=== PATIENT | male | born 1975 | race Caucasian/White ===

== ENCOUNTER 2017-04-07 23:02 | Inpatient (IN) | payer SELFPAY ==
[~2017-04-07] VITALS: Ht 175.3 cm; Wt 89.4 kg
[~2017-04-07 23:02] MED LIST: ALPR0.25 PO; VENL37.52 PO
[2017-04-07] MEDS ORDERED: METF1000 PO (23:14)
[2017-04-07] MEDS ORDERED: LACTATED RINGERS 1,000 ML IV ONE (23:21)
[2017-04-07] MEDS ORDERED: KETOROLAC 30 MG/ML VIAL IVP ONE (23:30)
[2017-04-07 23:36] LABS: BASOPHILS % (AUTO) 0 % (0-10); BILIRUBIN,URINE NEGATIVE (NEGATIVE); COLOR,URINE YELLOW; EOSINOPHILS # (AUTO) 0.2 10^3/uL (0.0-0.3); EOSINOPHILS % (AUTO) 3 % (0-10); GLUCOSE, URINE (UA) 3+ (NEGATIVE); HEMATOCRIT 40 % (40-54); HEMOGLOBIN 14.9 G/DL (13.3-17.7); KETONES,URINE 4+ (NEGATIVE); LEUKOCYTE ESTERASE ,URINE NEGATIVE (NEGATIVE); LYMPHOCYTES # (AUTO) 1.8 X 10^3 (1.0-4.0); LYMPHOCYTES % (AUTO) 31 % (12-44); MEAN CORPUSCULAR HEMOGLOBIN 32 PG (25-34); MEAN CORPUSCULAR HGB CONC 37 G/DL (32-36); MEAN CORPUSCULAR VOLUME 85 FL (80-99); MEAN PLATELET VOLUME 9.7 FL (7.4-10.4); MONOCYTES # (AUTO) 0.5 X 10^3 (0.0-1.0); MONOCYTES % (AUTO) 9 % (0-12); NEUTROPHILS # (AUTO) 3.2 X 10^3 (1.8-7.8); NEUTROPHILS % (AUTO) 56 % (42-75); NITRITE,URINE NEGATIVE (NEGATIVE); PH,URINE 5 (5-9); PLATELET COUNT 241 10^3/uL (130-400); PROTEIN,URINE 2+ (NEGATIVE); RED BLOOD COUNT 4.71 10^6/uL (4.35-5.85); RED CELL DISTRIBUTION WIDTH 11.7 % (10.0-14.5); UROBILINOGEN,URINE NORMAL (NORMAL); WHITE BLOOD COUNT 5.7 10^3/uL (4.3-11.0)
[2017-04-07 23:43] LABS: BACTERIA,URINE TRACE /HPF; CALCIUM OXALATE CRYSTALS,UR MODERATE /LPF; CLARITY,URINE SLIGHTLY CLOUDY; GRANULAR CASTS,URINE 0-2 /LPF
[2017-04-08] VITALS (16 sets, daily range): BP systolic 102–146; BP diastolic 64–98
[2017-04-08] LABS: ALANINE AMINOTRANSFERASE 165 U/L (0-55); ALBUMIN 3.6 GM/DL (3.2-4.5); ALKALINE PHOSPHATASE 68 U/L (40-136); BILIRUBIN,TOTAL 0.5 MG/DL (0.1-1.0); BUN/CREATININE RATIO 16; CALCIUM 8.9 MG/DL (8.5-10.1); CARBON DIOXIDE 20 MMOL/L (21-32); CHLORIDE 100 MMOL/L (98-107); CREATININE SERUM 0.87 MG/DL (0.60-1.30); GFR ESTIMATED > 60; GLUCOSE 255 MG/DL (70-105); POTASSIUM 4.1 MMOL/L (3.6-5.0); SODIUM 136 MMOL/L (135-145); TOTAL PROTEIN 6.7 GM/DL (6.4-8.2)
--- NOTE | 2017-04-08 00:03 | ED Headache ---
General Chief Complaint: Glucose Problems Stated Complaint: ELEVATED PULSE,HEADACHE, AFTER NEW DIABETE MEDS Nursing Triage Note: HEADACHE, TACHYCARDIA STARTED METFORMIN SUNDAY Nursing Sepsis Screen: No Definite Risk Source: patient Exam Limitations: no limitations History of Present Illness Date Seen by Provider: Apr 07, 2017 Time Seen by Provider: 23:30 Initial Comments Patient present to ER by private conveyance with a chief complaint that he has been having a headache for the past day or so is progressively getting worse as well as general malaise. He has a little runny nose but no cough, shortness of breath, fevers, chills, nausea, vomiting, diarrhea, constipation or abdominal pain. He says 9 weeks ago he was a heavy drinker and he decided to quit drinking a get healthy because he discovered he was diabetic. He did a follow- up appointment earlier this week 5 or 6 days ago and was started on metformin 1000 mg twice a day. Since he stopped drinking he also started a ketogenic diet trying to reverse his diabetes and says he believes he is in ketosis. He is not on any other medications and has only been on the metformin for about for 5 days now. He took 800 mg ibuprofen about 6-8 hours ago with very little relief of his headache. He does not have a history of headaches or migraines. Patient reports at his last doctor's appointment was last time he had his sugar checked and it was 393 about a week ago. Allergies and Home Medications Allergies Coded Allergies: Penicillins (Unverified Adverse Reaction, Unknown, 11/14/14) codeine (Unverified Adverse Reaction, Unknown, 11/14/14) Home Medications Alprazolam 0.25 Mg Tablet, 0.25 MG PO BID PRN for ANXIETY, (Reported) Metformin HCl 1,000 Mg Tablet, Unknown Dose PO, (Reported) Venlafaxine HCl 37.5 Mg Cap.er.24h, 37.5 MG PO every other day, (Reported) Constitutional: No chills, No fever, malaise Eyes: Denies Blindness, Denies Blurred Vision, Denies Drainage Ears, Nose, Mouth, Throat: denies ear pain, denies ear discharge Respiratory: No cough, No dyspnea on exertion, No short of breath, No wheezing Cardiovascular: No chest pain, No palpitations Gastrointestinal: No abdominal pain, No constipation, No diarrhea, No nausea, No vomiting Genitourinary: No discharge, No dysuria Musculoskeletal: No back pain, No joint pain Skin: No pruritus, No rash Psychiatric/Neurological: Headache, Denies Numbness, Denies Paresthesia, Denies Seizure Past Yalgody-Kaqomh-Frgwzk Hx Patient Social History Alcohol Use: Denies Use Recreational Drug Use: No Smoking Status: Never a Smoker 2nd Hand Smoke Exposure: No Recent Foreign Travel: No Contact w/Someone Who Travel: No Recent Infectious Disease Expo: No Recent Hopitalizations: No Immunizations Up To Date Tetanus Booster (TDap): Unknown Seasonal Allergies Seasonal Allergies: No Surgeries History of Surgeries: Yes Surgeries: Abdominal, Orthopedic Respiratory History of Respiratory Disorde: No Cardiovascular History of Cardiac Disorders: No Neurological History of Neurological Disord: No Genitourinary History of Genitourinary Disor: No Gastrointestinal History of Gastrointestinal Di: Yes Gastrointestinal Disorders: Abdominal Hernia Musculoskeletal History of Musculoskeletal Dis: Yes Musculoskeletal Disorders: Degenerate Disk Disease Endocrine History of Endocrine Disorders: Yes Endocrine Disorders: Diabetes, Non-Insulin dep HEENT History of HEENT Disorders: No Cancer History of Cancer: No Psychosocial History of Psychiatric Problem: Yes Behavioral Health Disorders: Anxiety, Depression Integumentary History of Skin or Integumenta: No Physical Exam Vital Signs Vital Sign - Last 12Hours 04/07/17 23:05 Temp 97.9 Pulse 98 Resp 18 B/P (MAP) 129/90 (103) Pulse Ox 98 O2 Delivery Room Air Capillary Refill : Less Than 3 Seconds General Appearance: WD/WN, no apparent distress HEENT: PERRL/EOMI, normal ENT inspection, TMs normal, pharynx normal Neck: non-tender, supple, normal inspection Cardiovascular: normal peripheral pulses, regular rate, rhythm, no edema Respiratory: chest non-tender, lungs clear, normal breath sounds Gastrointestinal: normal bowel sounds, non tender, soft Extremities: normal inspection, normal capillary refill Psychiatric: alert, oriented x 3 Crainal Nerves: normal hearing, normal speech, PERRL Skin: normal color, warm/dry Progress/Results/Core Measures Results/Orders Lab Results Laboratory Tests Test 04/07/17 23:30 Range/Units White Blood Count 5.7 4.3-11.0 10^3/uL Red Blood Count 4.71 4.35-5.85 10^6/uL Hemoglobin 14.9 13.3-17.7 G/DL Hematocrit 40 40-54 % Mean Corpuscular Volume 85 80-99 FL Mean Corpuscular Hemoglobin 32 25-34 PG Mean Corpuscular Hemoglobin Concent 37 H 32-36 G/DL Red Cell Distribution Width 11.7 10.0-14.5 % Platelet Count 241 130-400 10^3/uL Mean Platelet Volume 9.7 7.4-10.4 FL Neutrophils (%) (Auto) 56 42-75 % Lymphocytes (%) (Auto) 31 12-44 % Monocytes (%) (Auto) 9 0-12 % Eosinophils (%) (Auto) 3 0-10 % Basophils (%) (Auto) 0 0-10 % Neutrophils # (Auto) 3.2 1.8-7.8 X 10^3 Lymphocytes # (Auto) 1.8 1.0-4.0 X 10^3 Monocytes # (Auto) 0.5 0.0-1.0 X 10^3 Eosinophils # (Auto) 0.2 0.0-0.3 10^3/uL Basophils # (Auto) 0.0 0.0-0.1 10^3/uL Urine Color YELLOW Urine Clarity SLIGHTLY CLOUDY Urine pH 5 5-9 Urine Specific [place] 1.025 H 1.016-1.022 Urine Protein 2+ H NEGATIVE Urine Glucose (UA) 3+ H NEGATIVE Urine Ketones 4+ H NEGATIVE Urine Nitrite NEGATIVE NEGATIVE Urine Bilirubin NEGATIVE NEGATIVE Urine Urobilinogen NORMAL NORMAL MG/DL Urine Leukocyte Esterase NEGATIVE NEGATIVE Urine RBC (Auto) NEGATIVE NEGATIVE Urine RBC NONE /HPF Urine WBC NONE /HPF Urine Squamous Epithelial Cells NONE /HPF Urine Crystals PRESENT H /LPF Urine Calcium Oxalate Crystals MODERATE H /LPF Urine Bacteria TRACE /HPF Urine Casts PRESENT /LPF Urine Granular Casts 0-2 H /LPF Urine Mucus SMALL H /LPF Urine Culture Indicated NO Sodium Level 136 135-145 MMOL/L Potassium Level 4.1 3.6-5.0 MMOL/L Chloride Level 100 98-107 MMOL/L Carbon Dioxide Level 20 L 21-32 MMOL/L Anion Gap 16 H 5-14 MMOL/L Blood Urea Nitrogen 14 7-18 MG/DL Creatinine 0.87 0.60-1.30 MG/DL Estimat Glomerular Filtration Rate > 60 BUN/Creatinine Ratio 16 Glucose Level 255 H 70-105 MG/DL Calcium Level 8.9 8.5-10.1 MG/DL Total Bilirubin 0.5 0.1-1.0 MG/DL Aspartate Amino Transf (AST/SGOT) 96 H 5-34 U/L Alanine Aminotransferase (ALT/SGPT) 165 H 0-55 U/L Alkaline Phosphatase 68 40-136 U/L Total Protein 6.7 6.4-8.2 GM/DL Albumin 3.6 3.2-4.5 GM/DL My Orders Orders - JANETH MEZA Cbc With Automated Diff (04/07/17 23:21) Comprehensive Metabolic Panel (04/07/17 23:21) Ua Culture If Indicated (04/07/17 23:21) Saline Lock/Iv-Start (04/07/17 23:21) Lactated Ringers (Lr 1000 Ml Iv Solution (04/07/17 23:21) Ketorolac Injection (Toradol Injection) (04/07/17 23:30) Ns Iv 1000 Ml (Sodium Chloride 0.9%) (04/08/17 00:33) Medications Given in ED Current Medications Medications Dose Ordered Sig/Rylan Route Start Time Stop Time Status Last Admin Dose Admin Ketorolac Tromethamine 15 mg ONCE ONCE IVP 04/07/17 23:30 04/07/17 23:31 DC 04/07/17 23:29 15 MG Lactated Ringer's 1,000 ml @ 0 mls/hr Q0M ONCE IV 04/07/17 23:21 04/07/17 23:22 DC 04/07/17 23:29 0 MLS/HR Sodium Chloride 1,000 ml @ 0 mls/hr Q0M ONCE IV 04/08/17 00:33 04/08/17 00:34 DC 04/08/17 00:40 0 MLS/HR Vital Signs/I&O Vital Sign - Last 12Hours 04/07/17 04/07/17 04/08/17 23:05 23:29 00:21 Temp 97.9 97.9 Pulse 98 77 Resp 18 16 B/P (MAP) 129/90 (103) 136/81 (99) Pulse Ox 98 97 O2 Delivery Room Air Room Air Blood Pressure Mean: 103 Progress Note : Time: 00:02 Progress Note Mean on metformin and a ketogenic diet has probably got him a little dehydrated. We'll get urine, blood and check his kidney function as well as give him a liter of LR. Departure Communication (Admissions) Time/Spoke to Admitting Phy: 01:[address] Lui she is okay with 10 of regular insulin by IV and DKA protocol in the ICU and she'll see the patient in the morning. Impression Impression: Primary Impression: Diabetic ketoacidosis Qualified Codes: E11.10 - Type 2 diabetes mellitus with ketoacidosis without coma Disposition: ADMITTED INPATIENT Condition: Improved Admissions Decision to Admit Reason: Admit from ER (General) Decision to Admit/Date: Apr 08, 2017 Time/Decision to Admit Time: 01:06 Departure-Patient Inst. Referrals: OCHOA CORNEJO (PCP/Family) Primary Care Physician JANETH MEZA Apr 08, 2017 00:02
[2017-04-08] MEDS ORDERED: NS IV 1000 ML 1,000 ML IV ONE (00:33)
[2017-04-08] MEDS ORDERED: inSUlin (REGULAR) HUMAN 1 UNIT/0.01 ML (CHARGE PER UNIT) IV ONE (01:15)
--- OUTSIDE RECORDS SUMMARY | 2017-04-08 01:23 | XMS REPORT | Continuity of Care Document ---
Author Author [facility] Organization [facility] Address Unknown Phone Unavailable Allergies Active Description Code Type Severity Reaction Onset Reported/Identified Relationship to Patient Clinical Status Yes codeine [id number] Drug Allergy Unknown N/A 11/14/2014 Yes Penicillins [id number] Drug Allergy Unknown N/A 11/14/2014 Medications There is no data. Problems Date Dx Coded Attending Type Code Diagnosis Diagnosed By 11/15/2014 ARIELA CHAMBERLAIN MD Ot 785.0 TACHYCARDIA NOS 11/15/2014 ARIELA CHAMBERLAIN MD Ot 785.1 PALPITATIONS 11/15/2014 ARIELA CHAMBERLAIN MD Ot 790.5 ABN SERUM ENZY LEVEL NEC 09/08/2015 ARIELA CHAMBERLAIN MD Ot R07.89 OTHER CHEST PAIN 09/08/2015 ARIELA CHAMBERLAIN MD Ot R73.9 HYPERGLYCEMIA, UNSPECIFIED 09/08/2015 ARIELA CHAMBERLAIN MD Ot R74.8 ABNORMAL LEVELS OF OTHER SERUM ENZYMES Procedures There is no data. Results Test Result Range Complete blood count (CBC) with automated white blood cell (WBC) differential - 04/07/17 23:30 Blood leukocytes automated count (number/volume) 5.7 10*3/uL 4.3-11.0 Blood erythrocytes automated count (number/volume) 4.71 10*6/uL 4.35-5.85 Venous blood hemoglobin measurement (mass/volume) 14.9 g/dL 13.3-17.7 Blood hematocrit (volume fraction) 40 % 40-54 Automated erythrocyte mean corpuscular volume 85 [foz_us] 80-99 Automated erythrocyte mean corpuscular hemoglobin (mass per erythrocyte) 32 pg 25-34 Automated erythrocyte mean corpuscular hemoglobin concentration measurement ( mass/volume) 37 g/dL 32-36 Automated erythrocyte distribution width ratio 11.7 % 10.0-14.5 Automated blood platelet count (count/volume) 241 10*3/uL 130-400 Automated blood platelet mean volume measurement 9.7 [foz_us] 7.4-10.4 Automated blood neutrophils/100 leukocytes 56 % 42-75 Automated blood lymphocytes/100 leukocytes 31 % 12-44 Blood monocytes/100 leukocytes 9 % 0-12 Automated blood eosinophils/100 leukocytes 3 % 0-10 Automated blood basophils/100 leukocytes 0 % 0-10 Blood neutrophils automated count (number/volume) 3.2 10*3 1.8-7.8 Blood lymphocytes automated count (number/volume) 1.8 10*3 1.0-4.0 Blood monocytes automated count (number/volume) 0.5 10*3 0.0-1.0 Automated eosinophil count 0.2 10*3/uL 0.0-0.3 Automated blood basophil count (count/volume) 0.0 10*3/uL 0.0-0.1 Complete urinalysis with reflex to culture - 04/07/17 23:30 Urine color determination YELLOW NRG Urine clarity determination SLIGHTLY CLOUDY NRG Urine pH measurement by test strip 5 5-9 Specific gravity of urine by test strip 1.025 1.016- 1.022 Urine protein assay by test strip, semi-quantitative 2+ NEGATIVE Urine glucose detection by automated test strip 3+ NEGATIVE Erythrocytes detection in urine sediment by light microscopy NEGATIVE NEGATIVE Urine ketones detection by automated test strip 4+ NEGATIVE Urine nitrite detection by test strip NEGATIVE NEGATIVE Urine total bilirubin detection by test strip NEGATIVE NEGATIVE Urine urobilinogen measurement by automated test strip (mass/volume) NORMAL NORMAL Urine leukocyte esterase detection by dipstick NEGATIVE NEGATIVE Automated urine sediment erythrocyte count by microscopy (number/high power field) NONE NRG Automated urine sediment leukocyte count by microscopy (number/high power field ) NONE NRG Bacteria detection in urine sediment by light microscopy TRACE NRG Squamous epithelial cells detection in urine sediment by light microscopy NONE NRG Crystals detection in urine sediment by light microscopy PRESENT NRG Casts detection in urine sediment by light microscopy PRESENT NRG Mucus detection in urine sediment by light microscopy SMALL NRG Complete urinalysis with reflex to culture NO NRG Calcium oxalate crystals detection in urine sediment by light microscopy MODERATE NRG Granular casts detection in urine sediment by light microscopy 0-2 NRG Comprehensive metabolic panel - 04/07/17 23:30 Serum or plasma sodium measurement (moles/volume) 136 mmol/L 135-145 Serum or plasma potassium measurement (moles/volume) 4.1 mmol/L 3.6-5.0 Serum or plasma chloride measurement (moles/volume) 100 mmol/L 98-107 Carbon dioxide 20 mmol/L 21-32 Serum or plasma anion gap determination (moles/volume) 16 mmol/L 5-14 Serum or plasma urea nitrogen measurement (mass/volume) 14 mg/dL 7-18 Serum or plasma creatinine measurement (mass/volume) 0.87 mg/dL 0.60-1.30 Serum or plasma urea nitrogen/creatinine mass ratio 16 NRG Serum or plasma creatinine measurement with calculation of estimated glomerular filtration rate > NRG Serum or plasma glucose measurement (mass/volume) 255 mg/dL 70-105 Serum or plasma calcium measurement (mass/volume) 8.9 mg/dL 8.5-10.1 Serum or plasma total bilirubin measurement (mass/volume) 0.5 mg/dL 0.1-1.0 Serum or plasma alkaline phosphatase measurement (enzymatic activity/volume) 68 U/L 40-136 Serum or plasma aspartate aminotransferase measurement (enzymatic activity/ volume) 96 U/L 5-34 Serum or plasma alanine aminotransferase measurement (enzymatic activity/volume ) 165 U/L 0-55 Serum or plasma protein measurement (mass/volume) 6.7 g/dL 6.4-8.2 Serum or plasma albumin measurement (mass/volume) 3.6 g/dL 3.2-4.5 Encounters ACCT No. Visit Date/Time Discharge Status Pt. Type Provider Facility Loc./Unit Complaint [id number] 09/07/2015 10:19:00 09/07/2015 12:37:00 DIS Outpatient ARIELA CHAMBERLAIN MD [facility] ER [id number] 11/14/2014 20:17:00 11/15/2014 00:14:00 DIS Emergency ARIELA CHAMBERLAIN MD [facility] ER [id number] 04/07/2017 23:38:00 Document Registration
--- OUTSIDE RECORDS SUMMARY | 2017-04-08 01:23 | XMS REPORT ---
Author Author [facility] Address Unknown Care Team Providers Care Garment Manufacturer Name Role Phone [facility] Unavailable PROBLEMS Unknown Problems ALLERGIES Substance Reaction Event Type Date Status Penicillin Unknown Non Drug Allergy Mar, Active codiene Unknown Non Drug Allergy Mar, Active SOCIAL HISTORY No smoking Hx information available PLAN OF CARE Activity Details Follow Up prn Reason:hygeine VITAL SIGNS Blood pressure systolic 136 mmHg 2016-04-07 Blood pressure diastolic 99 mmHg 2016-04-07 MEDICATIONS Medication Instructions Dosage Frequency Start Date End Date Duration Status Effexor Active Clindamycin HCl 150 MG Orally every 6 hrs 2 capsules 6h Mar, Mar, 7 days Active RESULTS No Results PROCEDURES Procedure Date Ordered Related Diagnosis Body Site LTD ORAL EVALUATION - PROBLEM FOCUS Apr 07, 2016 INTRAORL-PERIAPICAL 1 FILM [id number] Apr 07, 2016 BITEWING - SINGLE FILM Apr 07, 2016 IMMUNIZATIONS No Known Immunizations
[2017-04-08] MEDS ORDERED: ACETAMINOPHEN 500 MG TAB (TYLENOL) ONE (02:14)
[2017-04-08 02:33] LABS: BASOPHILS % (AUTO) 0 % (0-10); EOSINOPHILS # (AUTO) 0.2 10^3/uL (0.0-0.3); EOSINOPHILS % (AUTO) 3 % (0-10); HEMATOCRIT 38 % (40-54); LYMPHOCYTES # (AUTO) 1.8 X 10^3 (1.0-4.0); LYMPHOCYTES % (AUTO) 32 % (12-44); MEAN CORPUSCULAR HEMOGLOBIN 32 PG (25-34); MEAN CORPUSCULAR HGB CONC 37 G/DL (32-36); MEAN CORPUSCULAR VOLUME 86 FL (80-99); MEAN PLATELET VOLUME 9.8 FL (7.4-10.4); MONOCYTES # (AUTO) 0.5 X 10^3 (0.0-1.0); MONOCYTES % (AUTO) 9 % (0-12); NEUTROPHILS # (AUTO) 3.1 X 10^3 (1.8-7.8); NEUTROPHILS % (AUTO) 56 % (42-75); PLATELET COUNT 218 10^3/uL (130-400); RED BLOOD COUNT 4.39 10^6/uL (4.35-5.85); RED CELL DISTRIBUTION WIDTH 11.7 % (10.0-14.5); WHITE BLOOD COUNT 5.5 10^3/uL (4.3-11.0)
[2017-04-08 02:46] LABS: MAGNESIUM 1.7 MG/DL (1.8-2.4); PHOSPHORUS 2.4 MG/DL (2.3-4.7)
[2017-04-08 02:48] LABS: BUN/CREATININE RATIO 19; CALCIUM 8.3 MG/DL (8.5-10.1); CARBON DIOXIDE 20 MMOL/L (21-32); CHLORIDE 105 MMOL/L (98-107); CREATININE SERUM 0.75 MG/DL (0.60-1.30); GFR ESTIMATED > 60; GLUCOSE 159 MG/DL (70-105); POTASSIUM 3.7 MMOL/L (3.6-5.0); SODIUM 139 MMOL/L (135-145)
[2017-04-08] MEDS ORDERED: NS IV 1000 ML 1,000 ML ONE (02:48)
[2017-04-08] MEDS ORDERED: ONDANSETRON 4 MG/2 ML (SDV) Z0FRAN IV PRN (03:00)
[2017-04-08] MEDS ORDERED: ACETAMINOPHEN 500 MG TAB (TYLENOL) PO PRN (03:00)
[2017-04-08] MEDS ORDERED: fentaNYL INJECTION 100 MCG/2 ML AMP IV PRN (03:00)
[2017-04-08] MEDS ORDERED: REGULAR inSUlin DRIP 250 UNITS/NS 250 ML IV SCH ×2 (03:15)
[2017-04-08] MEDS ORDERED: inSUlin (REGULAR) HUMAN 1 UNIT/0.01 ML (CHARGE PER UNIT) SC SCH (03:15)
[2017-04-08] MEDS ORDERED: 1/2 NS W/KCL 20 MEQ/L 1,000 ML IV SCH (03:15)
[2017-04-08] MEDS ORDERED: DEXTROSE 10% IV SOLUTION 1,000 ML IV SCH (03:15)
[2017-04-08] MEDS: NS IV 1000 ML 1,000 ML IV SCH ×3 (03:21→17:37)
[2017-04-08] MEDS: inSUlin (REGULAR) HUMAN 1 UNIT/0.01 ML (CHARGE PER UNIT) SC SCH ×5 (04:06→22:46)
[2017-04-08] MEDS ORDERED: INFLUENZA TRIvalent 2017-2018 0.5 ML/45 MCG SYR IM ONE (07:30)
--- NOTE | 2017-04-08 10:23 | History & Physical-Hospitalist ---
HPI History of Present Illness: HPI/Chief Complaint Pt is a 41yoNAM with a PMHof recently diagnosed diabetes and excessive alcohol use who presented to the Er for body aches and headache. He reports that he quit drinking "cold turkey" 9 weeks ago in an effort to lose weight. He previously drank ~12 beers per day. He did start losing weight but also started to feel ill. He also started a ketogenic diet for weight loss. He was seen by his PCP DRIVE MAN Sanya who checked labs and found that he was very hyperglycemic (he believes 380s). She started him on 1000mg Metformin BID on 04/02/16. He continued to feel worse since starting it. On 04/06 he developed a headache and continued to have similar symptoms all that day and Sunday which prompted him to seek evaluation in the ER. He denied any fevers but has multiple sick contacts, a few that hav ebeen diagnosed with the flu. In the ER he was found to be in probable DKA though confounded by his ketogenic diet. He was admitted to the ICU for an insulin gtt but ultimately responded well to the 10 units insulin given in the ER that he was just transitioned to sliding scale by eICU. Source: patient, family Date Seen 04/08/17 Time Seen by Provider: 10:21 Attending Physician Ana Morales MD PCP Dominga Segundo Referring Physician Date of Admission Apr 08, 2017 at 1:10 am Home Medications & Allergies Home Medications Reviewed patient Home Medication Reconciliation Form Allergies Allergies Coded Allergies Penicillins (Unverified Adverse Reaction, Unknown, 11/14/14) codeine (Unverified Adverse Reaction, Unknown, 11/14/14) Past Utxidvo-Mykfcz-Tdhkpm Hx Patient Social History Alcohol Use: Past History Alcohol Beverage of Choice: Beer Recreational Drug Use: No Smoking Status: Never a Smoker 2nd Hand Smoke Exposure: No Physical Abuse Screen: No Sexual Abuse: No Recent Foreign Travel: No Contact w/other who traveled: No Recent Hopitalizations: No Recent Infectious Disease Expo: No Immunizations Up To Date Tetanus Booster (TDap): Unknown Pediatric: No Seasonal Allergies Seasonal Allergies: No Surgeries Yes (C5,6,7 Fusion. Epigastric hernia Surgery 1996.) Abdominal, Orthopedic Respiratory No Currently Using CPAP: No Currently Using BIPAP: No Cardiovascular Yes Neurological No Reproductive System Sexually Transmitted Disease: No HIV/AIDS: No Genitourinary No Gastrointestinal Yes Abdominal Hernia Musculoskeletal Yes Degenerate Disk Disease Endocrine History of Endocrine Disorders: Yes Endocrine Disorders: Diabetes, Non-Insulin dep HEENT History of HEENT Disorders: No Cancer No Psychosocial History of Psychiatric Problem: Yes Behavioral Health Disorders: Anxiety, Depression Integumentary History of Skin or Integumenta: No Blood Transfusions History of Blood Disorders: No Adverse Reaction to a Blood Tr: No Family Medical History Family Hx: Diabetes mellitus 19 FATHER, Onset: Hypercholesterolemia 19 FATHER, Onset: 19 MOTHER, Onset: Hypertension 19 MOTHER, Onset: Review of Systems Constitutional: No fever, weakness, weight loss EENTM: no symptoms reported Respiratory: No cough, No short of breath Cardiovascular: No chest pain, No palpitations Gastrointestinal: No abdominal pain, No constipation, No diarrhea Genitourinary: frequency Musculoskeletal: no symptoms reported Skin: no symptoms reported Psychiatric/Neurological: No Symptoms Reported Physical Exam Physical Exam Vital Signs Vital Sign - Last 12Hours 04/07/17 23:05 Temp 97.9 Pulse 98 Resp 18 B/P (MAP) 129/90 (103) Pulse Ox 98 O2 Delivery Room Air Capillary Refill : Less Than 3 Seconds General Appearance: No Apparent Distress, WD/WN HEENT: Moist Mucous Membranes, No Scleral Icterus (L), No Scleral Icterus (R) Neck: Non Tender, Supple Respiratory: Lungs Clear, No Accessory Muscle Use, No Respiratory Distress Cardiovascular: Regular Rate, Rhythm, No JVD, No Murmur Gastrointestinal: Normal Bowel Sounds, Non Tender, Soft Extremity: Non Tender, No Pedal Edema Neurologic/Psychiatric: Alert, Oriented x3, Normal Mood/Affect Skin: Normal Color, Warm/Dry Results Results/Procedures Lab Laboratory Tests 04/07/17 23:30 04/08/17 02:26 04/08/17 10:14 Assessment/Plan Admission Diagnosis ketoacidosis Diagnosis/Problems Diagnosis/Problems (1) Diabetic ketoacidosis Status: Acute Assessment & Plan: Likely DKA though confounded by ketogenic diet Will consult manager fiber and DM educator Received insulin and improved A1c pending With blood sugars being in the high 300s I anticipate his A1c with be over 9-10 Will start levemir 10U tonight Will likely need insulin at DC Hold metformin Qualifiers: Qualified Codes: E11.10 - Type 2 diabetes mellitus with ketoacidosis without coma (2) Elevated liver enzymes Status: Acute Assessment & Plan: Likely due to excessive alcohol use Sober x 9 weeks Will need outpatient usg (3) Anxiety Assessment & Plan: Resume home Xanax and Effexor (4) Hypomagnesemia Assessment & Plan: Will replace Clinical Quality Measures DVT/VTE Risk/Contraindication: Risk Factor Score Per Nursin RFS Level Per Nursing on Admit: 1=Low/No VTE PPX ANA MORALES MD Apr 08, 2017 10:23 am
[2017-04-08 10:48] LABS: BUN/CREATININE RATIO 13; CALCIUM 8.1 MG/DL (8.5-10.1); CARBON DIOXIDE 22 MMOL/L (21-32); CHLORIDE 104 MMOL/L (98-107); CREATININE SERUM 0.75 MG/DL (0.60-1.30); GFR ESTIMATED > 60; GLUCOSE 246 MG/DL (70-105); SODIUM 138 MMOL/L (135-145)
[2017-04-08] MEDS: VENlafaxine XR 37.5 MG (EFFEXOR XR) CAP PO SCH (10:48)
[2017-04-08] MEDS: ALPRAZolam 0.5 MG (XANAX) TAB PO PRN (10:48)
[2017-04-08] MEDS ORDERED: VENL-48 PO (13:25)
[2017-04-08] MEDS ORDERED: ALPR0.5T7 PO (13:25)
[2017-04-08] MEDS: MAGNESIUM 1 GM/100 ML IVPB 100 ML IV SCH ×2 (15:40→17:33)
[2017-04-08] MEDS ORDERED: CALCIUM CARBONATE 500 MG (TUMS) TAB.CHEW PO PRN (17:00)
[2017-04-08] MEDS: IBUPROFEN 600 MG (MOTRIN) TAB PO SCH (17:37)
[2017-04-08] MEDS ORDERED: inSUlin DETERMIR 1 UNIT/0.01 ML (LEVEMIR) CHARGE PER UNIT SQ SCH (21:00)
[2017-04-09 00:35] VITALS: BP 132/88
[2017-04-09] MEDS: NS IV 1000 ML 1,000 ML IV SCH ×3 (01:20→08:00)
[2017-04-09] MEDS: IBUPROFEN 600 MG (MOTRIN) TAB PO SCH ×3 (01:23→11:38)
[2017-04-09 04:54] VITALS: BP 123/80
[2017-04-09 06:14] LABS: BASOPHILS % (AUTO) 0 % (0-10); EOSINOPHILS # (AUTO) 0.1 10^3/uL (0.0-0.3); EOSINOPHILS % (AUTO) 3 % (0-10); HEMATOCRIT 38 % (40-54); HEMOGLOBIN 14.3 G/DL (13.3-17.7); LYMPHOCYTES # (AUTO) 1.6 X 10^3 (1.0-4.0); LYMPHOCYTES % (AUTO) 34 % (12-44); MEAN CORPUSCULAR HEMOGLOBIN 32 PG (25-34); MEAN CORPUSCULAR HGB CONC 38 G/DL (32-36); MEAN CORPUSCULAR VOLUME 85 FL (80-99); MONOCYTES # (AUTO) 0.6 X 10^3 (0.0-1.0); MONOCYTES % (AUTO) 13 % (0-12); NEUTROPHILS # (AUTO) 2.3 X 10^3 (1.8-7.8); NEUTROPHILS % (AUTO) 50 % (42-75); PLATELET COUNT 233 10^3/uL (130-400); RED BLOOD COUNT 4.46 10^6/uL (4.35-5.85); RED CELL DISTRIBUTION WIDTH 11.9 % (10.0-14.5); WHITE BLOOD COUNT 4.7 10^3/uL (4.3-11.0)
[2017-04-09] MEDS: inSUlin (REGULAR) HUMAN 1 UNIT/0.01 ML (CHARGE PER UNIT) SC SCH ×2 (06:34→11:38)
[2017-04-09 06:57] LABS: BUN/CREATININE RATIO 8; CALCIUM 8.2 MG/DL (8.5-10.1); CARBON DIOXIDE 21 MMOL/L (21-32); CHLORIDE 105 MMOL/L (98-107); CREATININE SERUM 0.71 MG/DL (0.60-1.30); GFR ESTIMATED > 60; GLUCOSE 197 MG/DL (70-105); MAGNESIUM 1.9 MG/DL (1.8-2.4); POTASSIUM 3.2 MMOL/L (3.6-5.0); SODIUM 139 MMOL/L (135-145)
[2017-04-09] MEDS ORDERED: KCL 20 MEQ TAB (K-DUR) PO NR (07:15)
[2017-04-09] MEDS: VENlafaxine XR 37.5 MG (EFFEXOR XR) CAP PO SCH (08:08)
[2017-04-09] MEDS ORDERED: HUM100VI13 SQ (11:39)
[2017-04-09] MEDS ORDERED: METF-478 PO (11:39)
[2017-04-09] MEDS: ALPRAZolam 0.5 MG (XANAX) TAB PO PRN (11:42)
--- NOTE | 2017-04-09 16:22 | Discharge Summary-Hospitalist ---
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 and DM educator discussed with [place]enton Received insulin and improved A1c pending Called Lidia Segundo at [facility] and last a1c there was 12.1 Started on ReliOn (as has no insurance and could not preferred regimen with Levemir) and DM Educator gave education SW provide DM glucometer kit (2) Elevated liver enzymes Status: Acute Assessment & Plan: Likely due to excessive alcohol use Sober x 9 weeks Will need outpatient usg (3) Anxiety Assessment & Plan: Resume home Xanax and Effexor (4) Hypomagnesemia Assessment & Plan: Will replace Discharge Summary Discharge Physical Examination Allergies: Coded Allergies: Penicillins (Unverified Adverse Reaction, Unknown, 11/14/14) codeine (Unverified Adverse Reaction, Unknown, 11/14/14) Vitals & I&Os Vital Signs Date Time Temp Pulse Resp B/P (MAP) Pulse Ox O2 Delivery O2 Flow Rate FiO2 04/09/17 04:54 97.1 72 20 123/80 (94) 96 Room Air Hospital Course Pt presented with body aches and fatigue and was found to be in DKA. He was admitted to the ICU for insulin gtt but responded well to bolus 10 units regular insulin in ER and never necessitated the gtt. He was started on Levemir while admitted but was unable to afford that prescribed as an outpatient so plan adjusted to ReliOn. DM Educator give DM education. His Metformin was resumed at a lower dose as he did not tolerate larger doses. He does has a history of significant alcohol abuse and his liver enzymes were elevated. He will need a liver usg as an outpatient. Labs (last 24 hrs) Laboratory Tests 04/08/17 16:35: Glucometer 255H 04/08/17 21:58: Glucometer 335H 04/09/17 05:30: White Blood Count 4.7, Red Blood Count 4.46, Hemoglobin 14.3, Hematocrit 38L, Mean Corpuscular Volume 85, Mean Corpuscular Hemoglobin 32, Mean Corpuscular Hemoglobin Concent 38H, Red Cell Distribution Width 11.9, Platelet Count 233, Mean Platelet Volume 10.0, Neutrophils (%) (Auto) 50, Lymphocytes (%) (Auto) 34 , Monocytes (%) (Auto) 13H, Eosinophils (%) (Auto) 3, Basophils (%) (Auto) 0, Neutrophils # (Auto) 2.3, Lymphocytes # (Auto) 1.6, Monocytes # (Auto) 0.6, Eosinophils # (Auto) 0.1, Basophils # (Auto) 0.0, Sodium Level 139, Potassium Level 3.2L, Chloride Level 105, Carbon Dioxide Level 21, Anion Gap 13, Blood Urea Nitrogen 6L, Creatinine 0.71, Estimat Glomerular Filtration Rate > 60, BUN/ Creatinine Ratio 8, Glucose Level 197H, Calcium Level 8.2L, Magnesium Level 1.9 04/09/17 05:48: Glucometer 200H 04/09/17 11:12: Glucometer 287H Microbiology 04/08/17 Influenza Types A,B Antigen (JANINE) - Final, Complete Pending Labs Laboratory Tests 04/09/17 11:12: Glucometer 287 Discussion & Recommendations I personally called and discussed the plan with his PCP Lidia Segundo at [facility]. Patient is to follow up with her or with [facility] if able to get in within 1- 2 weeks. [place] Discharge Home Medications: Active Scripts Active Relion Novolin 70-30 Vial (Insulin NPH Hum/Reg Insulin Hm) 100 Unit/1 Ml Vial 10 Unit SQ BID Metformin HCl ER (Metformin HCl) 500 Mg Tab.er.24 500 Mg PO DAILY Reported Venlafaxine HCl ER (Venlafaxine HCl) 37.5 Mg Cap.er.24h 37.5 Mg PO DAILY Alprazolam 0.5 Mg Tablet 0.5 Mg PO TID PRN Instructions to patient/family Please see electronic discharge instructions given to patient. Clinical Quality Measures DVT/VTE Risk/Contraindication: Risk Factor Score Per Nursin RFS Level Per Nursing on Admit: 1=Low/No VTE PPX Problem Qualifiers (1) Diabetic ketoacidosis: Diabetes mellitus type: type 2 Diabetes mellitus complication detail: without coma Qualified Codes: E11.10 - Type 2 diabetes mellitus with ketoacidosis without coma ANA MORALES MD Apr 09, 2017 16:22
== END 2017-04-09 12:38 | disposition home or self-care (01) | DRG 639 ==
LOC: EDUNIT# 23:02 → ER 23:05 → ICU 04-08 01:10 → 4TH 04-08 12:50
PROVIDERS: ADMIT Family Medicine; ATTEND Family Medicine
DX: E11.10 Type 2 diabetes mellitus with ketoacidosis without coma (principal); Z79.84 Long term (current) use of oral hypoglycemic drugs; R74.8 Abnormal levels of other serum enzymes; F41.9 Anxiety disorder, unspecified; E83.42 Hypomagnesemia
CPT/HCPCS: 36415; 80048; 80053; 81000; 82962; 83036; 83735; 84100; 85025; 87081; 87804; 96361; 96374; 96375